=== PATIENT | female | born 2000 | race Caucasian/White ===

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

== ENCOUNTER → 2019-06-23 | Outpatient (CLI) | payer BC ==
--- NOTE | 2019-06-25 10:48 | RAD ---
EXAM DESCRIPTION: Abdomen Series: CR/DR/XR. CLINICAL HISTORY: DIARRHEA COMPARISON: None TECHNIQUE: 3 VIEWS. Supine abdomen and pelvis and upright chest and abdomen. FINDINGS: Lungs are well-inflated and clear of infiltrate. No pleural effusion or pneumothorax. Cardiopulmonary vascular structures are unremarkable. No acute bony thoracic abnormalities. No free air under the diaphragms. No air-fluid levels in the abdomen or pelvis. IUD contraceptive device superimposed over the central pelvis in the midline. No abnormal radiodense objects overlying the urinary tracts.. IMPRESSION: No radiographic evidence of small bowel obstruction or free intraperitoneal air. 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
== END ==
LOC: LAB.O 16:11
PROVIDERS: ATTEND Nurse Practitioner Family
DX: R19.7 Diarrhea, unspecified (principal)